=== PATIENT | female | born 1980 | race Caucasian/White ===

== ENCOUNTER → 2017-05-16 | Outpatient (CLI) | payer BC ==
[~2017-05-16] MED LIST: BROMFED DM COU118 ML PO; IRON TABLETS325 MG PO; KEFLEX500 M1 PO; ORTHO TRI-CYCLE1 TA1 PO; PERCOCET 5/3251 EACH PO; PERCOCET1 TAB PO; PRENATAL PLUS1 TA1 PO; TYLENOL ES500 M1 PO
--- NOTE | 2017-05-16 18:10 | RADIOLOGY REPORT PS360 ---
ANKLE-RT-3 VIEWS HISTORY: INJURY , FELL 1 WEEK AGO ORDERING PHYSICIAN: Marialuisa Krueger APRN PATIENT AGE: 37 years COMPARISON: None FINDINGS: No fracture or dislocation. No lytic or blastic change. There is normal mineralization.. The joint spaces are well-preserved. No significant degenerative/arthritic changes. No erosive changes evident. IMPRESSION: Negative, no acute finding
--- NOTE | 2017-05-16 21:51 | RADIOLOGY REPORT PS360 ---
FOOT-RT-3 VIEWS HISTORY: Pain following injury INJURY , FELL 1 WEEK AGO ORDERING PHYSICIAN: Marialuisa Krueger APRN PATIENT AGE: 37 years COMPARISON: None FINDINGS: No fracture or dislocation. No lytic or blastic change. There is normal mineralization.. The joint spaces are well-preserved. No significant degenerative/arthritic changes. No erosive changes evident. IMPRESSION: Negative, no acute finding
== END ==
LOC: RAD 17:16
DX: S89.91XA Unspecified injury of right lower leg, initial encounter (principal)

== ENCOUNTER → 2017-05-17 | Outpatient (CLI) | payer BC ==
--- NOTE | 2017-05-17 16:58 | CARDIOVASCULAR REPORT ---
"Venous Exam Indications: 729.5 Pain in limb. IMPRESSIONS 1. There is no evidence of significant Reflux. 2. No evidence of deep or superficial vein thrombosis involving the right lower extremity History: Right lower extremity pain. Risk factors: Recent trauma. Patient had a fall 05/09/17 that sprained the right ankle. Pain and swelling has worsened since then. Right lower extremity venous duplex evaluation. Doppler flow study including spectral analysis, color and ybarra scale imaging. Location: Vascular laboratory. Patient status: Outpatient. Tables: Venous flow and imaging: + +-------+ + |Location |Overall|Flow properties | + +-------+ + |Right common femoral |Patent |Normal phasicity; spontaneous; | | | |normal augmentation; compressible| + +-------+ + |Right saphenofemoral junction|Patent |Compressible | + +-------+ + |Right profunda femoral |Patent |Compressible | + +-------+ + |Right femoral |Patent |Normal phasicity; spontaneous; | | | |normal augmentation; compressible| + +-------+ + |Right greater saphenous |Patent |Normal phasicity; spontaneous; | | | |normal augmentation; compressible| + +-------+ + |Right popliteal |Patent |Normal phasicity; spontaneous; | | | |normal augmentation; compressible| + +-------+ + |Right posterior tibial |Patent |Compressible | + +-------+ + |Right peroneal |Patent |Compressible | + +-------+ + |Right gastrocnemius |Patent |Compressible | + +-------+ + |Right soleal |Patent |Compressible | + +-------+ + (Report amended ) Electronically signed by: Gustavo Flowers [id number]"
== END ==
LOC: RAD 16:14
DX: M79.661 Pain in right lower leg (principal)